=== PATIENT | female | born 1985 ===

== ENCOUNTER 2016-08-04 18:42 | Emergency (ER) | payer MEDICARE, OTHER ==
[2016-08-04 19:14] LABS: SPECIFIC GRAVITY 1.015 (1.001-1.030); URINE BILIRUBIN NEGATIVE (NEGATIVE); URINE BLOOD 1+ (NEGATIVE); URINE GLUCOSE (UA) NEGATIVE (NEGATIVE); URINE LEUKOCYTE ESTERASE NEGATIVE (NEGATIVE); URINE NITRITE NEGATIVE (NEGATIVE); URINE PROTEIN NEGATIVE (NEGATIVE); URINE UROBILINOGEN NORMAL (0-1 mg/dl)
[2016-08-04 19:19] LABS: HCG,QUALITATIVE URINE NEGATIVE; URINE APPEARANCE CLEAR; URINE COLOR LIGHT YELLOW
[2016-08-04 19:24] LABS: URINE BACTERIA NONE SEEN; URINE EPITHELIAL CELLS 0-2 /hpf; URINE RBC 0-2 /hpf; URINE WBC 0-2 /hpf
== END 2016-08-04 21:16 | disposition home or self-care (01) ==
LOC: ED 18:42
DX: M54.5 Low back pain (principal); T36.8X5A Adverse effect of other systemic antibiotics, initial encounter; Y92.9 Unspecified place or not applicable